=== PATIENT | male | born 1970 | race African-American/Black ===

== ENCOUNTER 2021-03-24 00:13 | Emergency (ER) | payer OTHER ==
[~2021-03-24] VITALS: Ht 188 cm; Wt 122.7 kg
[2021-03-24 02:00] VITALS: BP 137/78
[2021-03-24] MEDS ORDERED: LORazepam 1 MG TABLET PO ONE (03:15)
== END 2021-03-24 03:15 | disposition home or self-care (01) ==
LOC: EMS 00:14
DX: F41.9 Anxiety disorder, unspecified (principal); F12.90 Cannabis use, unspecified, uncomplicated; F17.210 Nicotine dependence, cigarettes, uncomplicated
CPT/HCPCS: 82962; 99283

== ENCOUNTER 2021-03-27 14:21 | Emergency (ER) | payer OTHER ==
[~2021-03-27] VITALS: Ht 188 cm; Wt 125.0 kg
[2021-03-27] MEDS ORDERED: HydrOXYzine PAMOATE 25 MG CAPSULE PO ONE (15:45)
[2021-03-27 16:46] VITALS: BP 130/68
== END 2021-03-27 16:56 | disposition home or self-care (01) ==
LOC: EMS 14:27
DX: F41.9 Anxiety disorder, unspecified (principal); F17.210 Nicotine dependence, cigarettes, uncomplicated; F12.90 Cannabis use, unspecified, uncomplicated
CPT/HCPCS: 99283